=== PATIENT | female | born 1980 | race African-American/Black ===

== ENCOUNTER 2017-02-16 05:59 | Emergency (ER) | payer MEDICARE, MEDICAID ==
[~2017-02-16] VITALS: Ht 160 cm; Wt 105.7 kg
[~2017-02-16 05:59] MED LIST: NORPTMEDS CO
[2017-02-16 06:05] VITALS: BP 120/233
[2017-02-16 07:08] LABS: Basophils # (auto) 0.1 uL; Basophils % (auto) 0.9 % (0.0-2.0); DEFINITIVE VIEW TRANSMISSION; Eosinophils # (auto) 0.5 uL; Eosinophils % (auto) 4.7 % (0.0-7.0); Hematocrit 34.7 % (36.0-46.0); Hemoglobin 10.4 g/dL (12.2-16.2); Lymphocytes # (auto) 2.4 uL; Lymphocytes % (auto) 20.6 % (10.0-50.0); Mean Corpuscular Hemoglobin 21.5 pg (28.0-32.0); Mean Corpuscular Hgb Conc. 29.9 g/dL (32.0-36.0); Mean Platelet Volume 8.3 fL (7.4-10.4); Monocytes # (auto) 0.7 uL; Monocytes % (auto) 6.1 % (0.0-12.0); Neutrophils # (auto) 7.9 uL; Neutrophils % (auto) 67.7 % (37.0-80.0); Platelet Count (auto) 543 10^3/uL (140-450); Red Cell Distribution Width 17.3 % (11.6-16.0); White Blood Cell 11.7 10^3/uL (4.4-10.8)
[2017-02-16 07:25] LABS: Chloride 106 mmol/L (98-107); Potassium 3.7 mmol/L (3.5-5.1); Sodium 141 mmol/L (136-145)
[2017-02-16 07:27] LABS: INR 0.93 (0.9-1.15); Partial Thromboplastin Time 26.3 sec (22.64-33.71)
[2017-02-16 07:32] LABS: Albumin 3.5 g/dL (3.4-5.0); Anion Gap 9 (5-15); Aspartate Aminotransferase 15 U/L (15-37); BUN/Creatinine Ratio 11.6; Blood Urea Nitrogen 11 mg/dL (7-18); Calcium 8.8 mg/dL (8.5-10.1); Carbon Dioxide 26 mmol/L (21-32); GFR African American 85 mL/min; GFR Non-African American 70 mL/min; Glucose 77 mg/dL (74-106); Magnesium 2.2 mg/dL (1.6-2.6)
[2017-02-16 07:37] LABS: Urine Bilirubin Negative (Negative); Urine Blood Negative /uL (Negative); Urine Color Yellow (Yellow); Urine Glucose Normal (Normal); Urine Ketone Negative (Negative); Urine Mucus FEW (None Seen); Urine Nitrite Negative (Negative); Urine RBC <1 /hpf (0 - 4); Urine Squamous Epithelial Cell FEW /hpf (<5); Urine pH 5.5 (5.0-8.0)
[2017-02-16 07:40] LABS: Alkaline Phosphatase 114 U/L (45-117); Bilirubin, Total 0.3 mg/dL (0.2-1.0); Total Protein 7.4 g/dL (6.4-8.2)
[2017-02-16 09:57] LABS: B-Type Natriuretic Peptide < 5.0 pg/mL (0-100)
== END 2017-02-16 08:40 | disposition left against medical advice (07) ==
LOC: ER 06:02
DX: R07.89 Other chest pain (principal); Z53.21 Procedure and treatment not carried out due to patient leaving prior to being seen by health care provider
CPT/HCPCS: 36415; 80053; 81001; 81025; 83735; 83880; 84484; 85025; 85610; 85730; 93005

== ENCOUNTER 2019-11-18 00:03 | Emergency (ER) | payer OTHER, MEDICAID ==
[~2019-11-18] VITALS: Ht 157.5 cm; Wt 120.2 kg
[2019-11-18 00:12] VITALS: BP 136/85
== END 2019-11-18 03:38 | disposition left against medical advice (07) ==
LOC: ER 00:10
DX: R07.9 Chest pain, unspecified (principal); Z53.21 Procedure and treatment not carried out due to patient leaving prior to being seen by health care provider

== ENCOUNTER → 2020-04-11 | Emergency (ER) | payer OTHER, MEDICAID ==
[~2020-04-11] VITALS: Ht 157.5 cm; Wt 125.8 kg
[2020-04-11 13:51] VITALS: BP 136/90
== END | disposition home or self-care (01) ==
LOC: ER 13:30
DX: M54.5 Low back pain (principal); Z53.21 Procedure and treatment not carried out due to patient leaving prior to being seen by health care provider